=== PATIENT | male | born 1945 | race Caucasian/White ===

== ENCOUNTER 2020-04-30 07:53 | Day surgery (SDC) | payer MEDICARE, OTHER, SELFPAY ==
[2020-04-09 08:41] VITALS: BMI 32.1
[2020-04-30] VITALS (7 sets, daily range): BP systolic 113–155; BP diastolic 51–90; PULSE 83–93; RESP 16–87; TEMP 36–36.4; O2SAT 95–98; BMI 32.7
[2020-04-30] MEDS: Lactated Ringers 1,000 ML 100 ML IV (08:38)
--- NOTE | 2020-04-30 08:45 | PCM.HP.BLA ---
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 Is patient in pain?: No Allergies aspirin Allergy (Unknown, Verified 04/09/20 08:42) Unknown Medications atorvastatin 80 mg tablet 80 mg PO QHS tab 04/09/20 [History Confirmed 04/09/20] cholecalciferol (vitamin D3) 50 mcg (2,000 unit) capsule 50 mcg PO DAILY 04/09/20 [History Confirmed 04/09/20] glipizide 5 mg tablet 5 mg PO DAILY 04/09/20 [History Confirmed 04/09/20] insulin detemir U-100 100 unit/mL (3 mL) subcutaneous pen 30 unit SC QHS ml 04/09/20 [History Confirmed 04/09/20] levothyroxine 25 mcg capsule 25 mcg PO DAILY 04/09/20 [History] metformin 1,000 mg tablet 1,000 mg PO BID 04/09/20 [History Confirmed 04/09/20] psyllium husk 0.4 gram capsule 0.4 g PO DAILY 04/09/20 [History Confirmed 04/09/20] PFSH Medical History Hemorrhoids (Acute) Acid reflux (Acute) Coughing (Acute) Arthritis (Acute) Rash (Acute) Diabetes (Acute) Surgical History Hx of repair of right rotator cuff (Acute) Hx of repair of left rotator cuff (Acute) Hx of cholecystectomy (Acute) Hx of appendectomy (Acute) Hx of tonsillectomy (Acute) Family History Mother Arthritis Heart disease Hypertension CVA (cerebral vascular accident) Thyroid disorder Seizures Asthma Father Diabetes Heart disease Hypertension CVA (cerebral vascular accident) High cholesterol Sister Diabetes Social History (Updated 04/09/20 @ 09:[address] Nicholas Redman MD) Smoking Status: Never smoker second hand exposure: No alcohol intake: never substance use type: does not use caffeine: Yes what type of physical activity do you participate in: none frequency: does not exercise seatbelt use: always HPI HPI HPI: EARL CONN, is a 74 M who presents to the office today for surgical consultation regarding a colonoscopy. The patient has never had a previous colonoscopy. He is referred by Dr. Blair Traore from the [facility] to proceed with a screening colonoscopy. The patient notes that I assisted him in approximately 1998 with a cholecystectomy. He states that at that time his gallbladder was so severe and secondary to his body habitus that we had to convert from a laparoscopic to an open procedure. He has done well since that time. He also claims that prior to that he had had a exploratory operation for bowel obstruction done elsewhere. He states that he had adhesions related to his appendix causing an internal hernia. He has had some intermittent problems with bowel obstruction since that time but mostly related to if he eats raw vegetables. He states that over the recent period of time he has become much more sedentary. He used to enjoy walking but he does not do that anymore. He denies chest pain or shortness of breath. He is a diabetic requiring insulin. He claims that he is not always diligent with his dietary intake. He denies bright red blood per rectum or melena. He denies abdominal pain. He denies any history of DVT HPI HPI HPI: EARL CONN is a 74 M who presents to the office today for ROS General General: No weight change, appetite, fatigue, colon cancer, breast cancer or weakness HEENT HEENT: No difficulty swallowing, eye injury, eye surgery, swollen glands or hoarseness Endo Endocrine: Yes diabetes mellitus; no thyroid disease, thyroid cancer, Hair loss, heat intolerance or cold intolerance Skin Skin: Yes rash; no changing moles Musc Musculoskeletal: Yes arthritis; no back problems, rheumatoid arthritis, gout or joint pain Cardio Cardiovascular: No murmur, pacemaker, heart disease, atrial fibrillation, high blood pressure, heart attack, heart stent, palpitations, shortness of breat with exertion or chest pain Psych Psychiatric: No depression, anxiety or hearing voices Resp Respiratory: No shortness of breath, No sleep apnea, Yes cough, No COPD, No asthma, No emphysema, No wheezing Gastro Gastrointestinal: No abdominal pain, No nausea or vomiting, No diarrhea, No constipation, No blood in stool, Yes acid reflux, Yes hemorrhoids, No ulcers, No gallbladder problem, No black,tarry stools Neuro Neurologic: No weakness Exam Const General: cooperative Nutritional Appearance: obese Orientation: alert, awake [facility] Head: normal to inspection Chest Chest palpation & inspection: normal inspection of the chest Resp Effort & Inspection: normal respiratory effort Auscultation: clear to auscultation bilaterally Cardio Rate: regular rate Heart Sounds: no murmurs GI Palpation: soft Auscultation: normal bowel sounds Other: Well-healed oblique right subcostal incision. Well-healed long midline incision extending from above the umbilicus to the pubis Musc Cervical Spine: normal cervical lordosis Neuro Cognition: normal cognition Extrem General: no calf tenderness Psych Affect: normal affect Assessment & Plan Problems 1. Screening for malignant neoplasm of intestine Z12.10 Plan I recommended the patient a screening colonoscopy with possible biopsy or polypectomy as indicated. He is already been provided bowel prep instructions from the [facility] with instructions to use movie prep. The patient has had an opportunity to ask and have questions answered. He is diabetic. We will provide monitored anesthesia care. We will schedule and proceed at his discretion. Copy: Dr. Blair Redman M.D., F.A.C.S. Coding Level of Care Code 66205 Diagnoses Screening for malignant neoplasm of intestine Z12.10 I have re-examined the patient. There are no clinical changes since date of exam.
--- NOTE | 2020-04-30 09:00 | COLBX_PTH ---
PATIENT: EARL CONN LOC: [facility] U#:[id number] AGE/SX: 74/M ROOM: RE04/30/[address]: Dr. Nicholas Redman MD : 1945 BED: DIS: 04/30/2020 SPEC #: [id number] RECD: 04/30/20 11:40 STATUS: SILVERIO SHANA #: [id number] MALENA: 04/30/20 09:[address]: Nicholas Redman DEPT: SURGICAL PATHOLOGY RECD BY: Poppy Villarreal ENTERED: 04/30/20 12:32 SP TYPE: COLON BX OTHR DR: [facility] Tissues: A - Ascending colon B - Transverse colon C - Transverse colon D - Transverse colon E - SPLENIC FLEXURE F - SPLENIC FLEXURE G - Descending colon H - Rectum, NOS I - Rectum, NOS Procedures: Surgery Specimen Level IV HEADER OPERATION: Colonoscopy (MAC) PRE-OP DIAGNOSIS: Screening TISSUE SUBMITTED: A - Mid ascending colon polyp snare, B - Proximal transverse colon polyp biopsy, C - Proximal transverse colon polyp snare, D - Mid transverse colon polyp biopsy, E - Splenic flexure polyp biopsy, F - Splenic flexure polyp snare, G - Descending colon polyp snare, H - Rectal polyp snare, I??Rectal polyp biopsy MICROSCOPIC DIAGNOSIS A. Mid ascending colon polyp, biopsy: Tubular adenoma. Fragments of fecal material. B. Proximal transverse colon polyp, biopsy: A fragment of colonic mucosa, no pathologic diagnosis. C. Proximal transverse colon polyp, biopsy: Fragments of tubular adenoma. Fragments of fecal material. D. Mid transverse colon polyp, biopsy: Fragments of tubular adenoma. E. Splenic flexure polyp, biopsy: Hyperplastic polyp. F. Splenic flexure polyp, biopsy: Fragments of fecal material. See comment. G. Descending colon polyp, biopsy: Tubular adenoma. H. Rectal polyp, biopsy: Hyperplastic polyp. Fragments of fecal material. I. Rectal polyp, biopsy: Hyperplastic polyp. SJ:christen 05/03/20 COMMENT F. Colonic mucosal tissue is not identified in the submitted specimen. MICROSCOPIC DESCRIPTION Slides are reviewed. GROSS DESCRIPTION A - Received in fixative is one container labeled with the patient's name and designated mid ascending colon polyp. The specimen consists of multiple irregular fragments of light gómez soft tissue mixed with fecal material that in aggregate measure 2 x 2 x 0.1 cm. The specimen predominantly consists of fecal material. The specimen is totally submitted in one cassette. B - Received in fixative is one container labeled with the patient's name and designated proximal transverse colon polyp. The specimen consists of one irregular fragment of light gómez soft tissue that measures 0.4 x 0.2 x 0.1 cm. The specimen is totally submitted in one cassette. C - Received in fixative is one container labeled with the patient's name and designated proximal transverse colon polyp snare. The specimen consists of multiple irregular fragments of gómez soft tissue mixed with fecal material that in aggregate measure 3 x 1.5 x 0.2 cm. The specimen predominantly consists of fecal material. The specimen is totally submitted in one cassette. D - Received in fixative is one container labeled with the patient's name and designated mid transverse polyp. The specimen consists of two irregular fragments of light gómez soft tissue that in aggregate measure 0.6 x 0.3 x 0.1 cm. The specimen is totally submitted in one cassette. E - Received in fixative is one container labeled with the patient's name and designated splenic flexure polyp. The specimen consists of one irregular fragment of light gómez soft tissue that measures 0.3 x 0.3 x 0.1 cm. The specimen is totally submitted in one cassette. F - Received in fixative is one container labeled with the patient's name and designated splenic flexure polyp. The specimen consists of multiple irregular fragments of gómez soft tissue mixed with fecal material that in aggregate measure 3 x 1.5 x 0.2 cm. The specimen predominantly consists of fecal material. The specimen is totally submitted in one cassette. G - Received in fixative is one container labeled with the patient's name and designated descending colon polyp. The specimen consists of a piece of gómez-pink polyp measuring 0.6 x 0.5 x 0.3 cm. Also present in the container are multiple fragments of gómez soft tissue mixed with fecal material measuring in aggregate 2.5 x 0.5 x 0.1 cm. The specimen is totally submitted in one cassette. H - Received in fixative is one container labeled with the patient's name and designated rectal polyp snare. The specimen consists of multiple irregular fragments of gómez soft tissue mixed with fecal material that in aggregate measure 2.5 x 1 x 0.2 cm. The specimen predominantly consists of fecal material. The entire specimen is submitted in one cassette. I - Received in fixative is one container labeled with the patient's name and designated rectal polyp biopsy. The specimen consists of two irregular fragments of light gómez soft tissue that in aggregate measure 0.5 x 0.3 x 0.1 cm. The specimen is totally submitted in one cassette. / SJ:christen 04/30/20 TC:1 CPT: 60499 x9
--- NOTE | 2020-04-30 10:03 | OP.COLON_ITS ---
Patient Name: Dayton Woody Procedure Date: 04/30/2020 9:21 AM Date of : 1945 Age: 74 Procedure: Colonoscopy Indications: Screening for colorectal malignant neoplasm Providers: Nicholas Redman MD Referring MD: Nicholas Redman MD Medicines: See the Anesthesia note for documentation of the administered medications Patient Profile: Last Colonoscopy: none. The patient's first colonoscopy is today. Complications: No immediate complications. Procedure: Pre-Anesthesia Assessment: - Prior to the procedure, a History and Physical was performed, and patient medications and allergies were reviewed. The patient's tolerance of previous anesthesia was also reviewed. The risks and benefits of the procedure and the sedation options and risks were discussed with the patient. All questions were answered, and informed consent was obtained. Prior Anticoagulants: The patient has taken no previous anticoagulant or antiplatelet agents. ASA Grade Assessment: III - A patient with severe systemic disease. After reviewing the risks and benefits, the patient was deemed in satisfactory condition to undergo the procedure. After I obtained informed consent, the scope was passed under direct vision. Throughout the procedure, the patient's blood pressure, pulse, and oxygen saturations were monitored continuously. The colonoscope was introduced through the anus and advanced to the cecum, identified by appendiceal orifice and ileocecal valve. The colonoscopy was performed with moderate difficulty due to poor endoscopic visualization. The patient tolerated the procedure well. The quality of the bowel preparation was fair. The ileocecal valve and the appendiceal orifice were photographed. Scope In: 9:26:42 AM Scope Withdrawal Time 0 hours 17 minutes 59 seconds Scope Out: 9:51:42 AM Total Procedure Duration Time 0 hours 25 minutes 0 seconds Findings: The digital rectal exam findings include non-thrombosed external hemorrhoids, non-thrombosed internal hemorrhoids, internal hemorrhoids that prolapse with straining, but spontaneously regress to the resting position (Grade II) and enlarged prostate. A 7 mm polyp was found in the mid ascending colon. The polyp was sessile. The polyp was removed with a cold snare. Resection and retrieval were complete. A 6 mm polyp was found in the proximal transverse colon. The polyp was sessile. The polyp was removed with a cold snare. Resection and retrieval were complete. A 4 mm polyp was found in the proximal transverse colon. The polyp was sessile. The polyp was removed with a cold biopsy forceps. Resection and retrieval were complete. A 6 mm polyp was found in the mid transverse colon. The polyp was sessile. The polyp was removed with a cold snare. Resection and retrieval were complete. A 8 mm polyp was found in the splenic flexure. The polyp was sessile. The polyp was removed with a cold snare. Resection and retrieval were complete. A 5 mm polyp was found in the splenic flexure. The polyp was sessile. The polyp was removed with a cold biopsy forceps. Resection and retrieval were complete. A 9 mm polyp was found in the mid descending colon. The polyp was sessile. The polyp was removed with a cold snare. Resection and retrieval were complete. A 7 mm polyp was found in the rectum. The polyp was sessile. The polyp was removed with a cold snare. Resection and retrieval were complete. A 4 mm polyp was found in the rectum. The polyp was sessile. The polyp was removed with a cold biopsy forceps. Resection and retrieval were complete. Scattered diverticula were found in the sigmoid colon. Impression: - Preparation of the colon was fair. - Non-thrombosed external hemorrhoids, non-thrombosed internal hemorrhoids, internal hemorrhoids that prolapse with straining, but spontaneously regress to the resting position (Grade II) and enlarged prostate found on digital rectal exam. - One 7 mm polyp in the mid ascending colon, removed with a cold snare. Resected and retrieved. - One 6 mm polyp in the proximal transverse colon, removed with a cold snare. Resected and retrieved. - One 4 mm polyp in the proximal transverse colon, removed with a cold biopsy forceps. Resected and retrieved. - One 6 mm polyp in the mid transverse colon, removed with a cold snare. Resected and retrieved. - One 8 mm polyp at the splenic flexure, removed with a cold snare. Resected and retrieved. - One 5 mm polyp at the splenic flexure, removed with a cold biopsy forceps. Resected and retrieved. - One 9 mm polyp in the mid descending colon, removed with a cold snare. Resected and retrieved. - One 7 mm polyp in the rectum, removed with a cold snare. Resected and retrieved. - One 4 mm polyp in the rectum, removed with a cold biopsy forceps. Resected and retrieved. - Diverticulosis in the sigmoid colon. Recommendation: - Discharge patient to home. - Resume previous diet. - Continue present medications. - Telephone my office for pathology results in 1 week. - Repeat colonoscopy in 1 year for surveillance. Procedure Code(s): --- Professional --- 47069, Colonoscopy, flexible; with removal of tumor(s), polyp(s), or other lesion(s) by snare technique 45897, 59, Colonoscopy, flexible; with biopsy, single or multiple Diagnosis Code(s): --- Professional --- Z12.11, Encounter for screening for malignant neoplasm of colon K64.1, Second degree hemorrhoids K64.4, Residual hemorrhoidal skin tags D12.2, Benign neoplasm of ascending colon D12.3, Benign neoplasm of transverse colon (hepatic flexure or splenic flexure) D12.4, Benign neoplasm of descending colon K62.1, Rectal polyp K57.30, Diverticulosis of large intestine without perforation or abscess without bleeding N40.0, Benign prostatic hyperplasia without lower urinary tract symptoms CPT copyright 2017 [employer]. All rights reserved. The codes documented in this report are preliminary and upon blender conveyor operator review may be revised to meet current compliance requirements. Nicholas Redman MD 04/30/2020 10:02:55 AM This report has been signed electronically. Number of Addenda: 0 Note Initiated On: 04/30/2020 9:21 AM
--- NOTE | 2020-04-30 10:03 | OP.CCLET_ITS ---
04/30/2020 [facility] Re : Colonoscopy procedure for [facility] This procedure was performed on Thursday, April 30, 2020. My impressions and recommendations are as follows: Impressions : - Preparation of the colon was fair. - Non-thrombosed external hemorrhoids, non-thrombosed internal hemorrhoids, internal hemorrhoids that prolapse with straining, but spontaneously regress to the resting position (Grade II) and enlarged prostate found on digital rectal exam. - One 7 mm polyp in the mid ascending colon, removed with a cold snare. Resected and retrieved. - One 6 mm polyp in the proximal transverse colon, removed with a cold snare. Resected and retrieved. - One 4 mm polyp in the proximal transverse colon, removed with a cold biopsy forceps. Resected and retrieved. - One 6 mm polyp in the mid transverse colon, removed with a cold snare. Resected and retrieved. - One 8 mm polyp at the splenic flexure, removed with a cold snare. Resected and retrieved. - One 5 mm polyp at the splenic flexure, removed with a cold biopsy forceps. Resected and retrieved. - One 9 mm polyp in the mid descending colon, removed with a cold snare. Resected and retrieved. - One 7 mm polyp in the rectum, removed with a cold snare. Resected and retrieved. - One 4 mm polyp in the rectum, removed with a cold biopsy forceps. Resected and retrieved. - Diverticulosis in the sigmoid colon. Recommendations : - Discharge patient to home. - Resume previous diet. - Continue present medications. - Telephone my office for pathology results in 1 week. - Repeat colonoscopy in 1 year for surveillance. My findings are described in the full procedure note, which is enclosed. If I can be of further assistance, please feel free to contact me at Doctor phone number(s): Work: . Sincerely, Nicholas Redman MD 04/30/2020 10:02:55 AM This report has been signed electronically.
[2020-04-30 10:36] LABS: Bedside Glucose 140 mg/dL (70-110)
== END 2020-04-30 10:55 | disposition home or self-care (01) ==
LOC: EN 07:54 → AC 07:55
PROVIDERS: Anesthesiology; Referring Provider Surgery; Visit Provider Surgery
PROC: 0DJD8ZZ Inspection of Lower Intestinal Tract, Via Natural or Artificial Opening Endoscopic (ICD-10-PCS; CPT 45378; principal; 2020-04-30 08:55)
DX: Z12.11 Encounter for screening for malignant neoplasm of colon (principal); D12.4 Benign neoplasm of descending colon; D12.3 Benign neoplasm of transverse colon; D12.2 Benign neoplasm of ascending colon; N40.0 Benign prostatic hyperplasia without lower urinary tract symptoms; K63.5 Polyp of colon; K62.1 Rectal polyp; K64.1 Second degree hemorrhoids; K64.4 Residual hemorrhoidal skin tags; K57.30 Diverticulosis of large intestine without perforation or abscess without bleeding; Z11.59 Encounter for screening for other viral diseases; M19.90 Unspecified osteoarthritis, unspecified site; K21.9 Gastro-esophageal reflux disease without esophagitis; E11.9 Type 2 diabetes mellitus without complications; Z90.49 Acquired absence of other specified parts of digestive tract; Z79.4 Long term (current) use of insulin; Z79.899 Other long term (current) drug therapy
CPT/HCPCS: 45380; 45385; 82962; 87635; 88305; C9803; J7120; J2405; U0003

== ENCOUNTER 2021-05-06 08:50 | Day surgery (SDC) | payer OTHER, SELFPAY ==
--- NOTE | 2021-05-06 | COLBX_PTH ---
PATIENT: EARL CONN LOC: EN U#:[id number] AGE/SX: 75/M ROOM: RE05/06/[address]: Dr. Nicholas Redman MD : 1945 BED: DIS: 05/06/2021 SPEC #: [id number] RECD: 05/06/21 13:36 STATUS: SILVERIO SHANA #: [id number] MALENA: 05/06/21 00:[address]: Nicholas Redman DEPT: SURGICAL PATHOLOGY RECD BY: Nathaniel Barakat ENTERED: 05/06/21 13:37 SP TYPE: COLON BX OT DR: [facility] Tissues: A - Transverse colon B - Descending colon C - Sigmoid colon biopsy Procedures: Surgery Specimen Level IV HEADER OPERATION: Colonoscopy (MAC) PRE-OP DIAGNOSIS: History colonic polyps TISSUE SUBMITTED: A ? Proximal transverse colon biopsy, B ? Descending colon biopsy, C ? Proximal sigmoid colon biopsy MICROSCOPIC DIAGNOSIS A. Proximal transverse colon, biopsy: Fragments of tubulovillous adenoma. B. Descending colon, biopsy: Fragments of tubular adenoma. C. Proximal sigmoid colon, biopsy: Tubular adenoma. FARSHAD:christen 05/09/2021 MICROSCOPIC DESCRIPTION Slides are reviewed. GROSS DESCRIPTION A - Received in fixative is one container labeled with the patient's name and designated proximal transverse colon biopsy. The specimen consists of multiple irregular fragments of light gómez soft tissue that in aggregate measure 1 x 0.4 x 0.1 cm. The specimen is totally submitted in one cassette. B - Received in fixative is one container labeled with the patient's name and designated descending colon biopsy. The specimen consists of multiple irregular fragments of light gómez soft tissue that in aggregate measure 0.3 x 0.3 x 0.1 cm. The specimen is totally submitted in one cassette. C - Received in fixative is one container labeled with the patient's name and designated proximal sigmoid colon biopsy. The specimen consists of two irregular fragments of light gómez soft tissue that in aggregate measure 0.3 x 0.3 x 0.1 cm. The specimen is totally submitted in one cassette. / FARSHAD:christen 05/06/21 TC:1 CPT: 82484 x3
[2021-05-06] MEDS: Lactated Ringers 1,000 ML 15 ML IV (09:00)
[2021-05-06 09:16] VITALS: BP 151/76; PULSE 84; RESP 16; TEMP 36.4; O2SAT 94; BMI 31.5
[2021-05-06 09:26] LABS: Bedside Glucose 106 mg/dL (70-110)
--- NOTE | 2021-05-06 09:26 | PCM.HP.BLA ---
History and Physical Date of Admission: 05/06/21 Intake Visit Reasons: C-Scope Chief Complaint: C-Scope Coremaker Machine Required: No Is patient in pain?: No Allergies aspirin Allergy (Unknown, Verified 04/11/21 13:09) Unknown Medications atorvastatin 80 mg tablet 80 mg PO QHS tab 04/09/20 [History Confirmed 04/11/21] cholecalciferol (vitamin D3) 50 mcg (2,000 unit) capsule 50 mcg PO DAILY 04/09/20 [History Confirmed 04/11/21] glipizide 5 mg tablet 5 mg PO DAILY 04/09/20 [History Confirmed 04/11/21] insulin detemir U-100 100 unit/mL (3 mL) subcutaneous pen 30 unit SC QHS ml 04/09/20 [History Confirmed 04/11/21] levothyroxine 25 mcg capsule 25 mcg PO DAILY 04/09/20 [History Confirmed 04/11/21] metformin 1,000 mg tablet 1,000 mg PO BID 04/09/20 [History Confirmed 04/11/21] psyllium husk 0.4 gram capsule 0.4 g PO DAILY 04/09/20 [History Confirmed 04/11/21] PFSH Medical History (Updated 04/11/21 @ 13:[address] Nicholas Redman MD) Acid reflux Arthritis Coughing Diabetes Hemorrhoids Multiple polyps of sigmoid colon Rash Screening for malignant neoplasm of intestine Surgical History (Updated 04/11/21 @ 13:08 by Oksana Ignacio) History of colonoscopy Hx of appendectomy Hx of cholecystectomy Hx of repair of left rotator cuff Hx of repair of right rotator cuff Hx of tonsillectomy Family History Mother Arthritis Heart disease Hypertension CVA (cerebral vascular accident) Thyroid disorder Seizures Asthma Father Diabetes Heart disease Hypertension CVA (cerebral vascular accident) High cholesterol Sister Diabetes Social History Smoking Status: Never smoker second hand exposure: No alcohol intake: never substance use type: does not use caffeine: Yes what type of physical activity do you participate in: none frequency: does not exercise seatbelt use: always HPI HPI HPI: EARL CONN, is a 75 M who presents to the office today for ongoing surgical consultation regarding a history of multiple colonic polyps. The patient is referred by the [facility] and a written copy of my surgical consult recommendations will return to them. I assisted him on April 30, 2020 with a colonoscopy. Bowel prep was noted to be fair. He had nine polyps removed at that time. Most were tubular adenoma. He did have some hyperplastic polyps as well. He returns now at my request for a follow-up colonoscopy secondary to the fair bowel prep and the history of multiple polyps He has not had any acute illnesses over the past year. He is a diabetic and sometimes does not abide by diabetic diet. He has chronic bilateral lower extremity swelling. 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 Blood per rectum or melena. No abdominal pain. ROS General General: No weight change, appetite, fatigue, colon cancer, breast cancer or weakness HEENT HEENT: No difficulty swallowing, eye injury, eye surgery, swollen glands or hoarseness Endo Endocrine: Yes diabetes mellitus; No thyroid disease, thyroid cancer, Hair loss, heat intolerance or cold intolerance Skin Skin: No rash or changing moles Breast Breast: No left breast lump, right breast lump, nipple discharge, breast pain, abnormal mammogram, abnormal US or breast enlargement Musc Musculoskeletal: Yes arthritis; No back problems, rheumatoid arthritis, gout or joint pain Cardio Cardiovascular: No murmur, pacemaker, heart disease, atrial fibrillation, high blood pressure, heart attack, heart stent, palpitations, shortness of breat with exertion or chest pain Psych Psychiatric: No depression, anxiety or hearing voices Resp Respiratory: No shortness of breath, No sleep apnea, No cough, No COPD, No asthma, No emphysema and No wheezing Gastro Gastrointestinal: No abdominal pain, No nausea or vomiting, No diarrhea, No constipation, No blood in stool, Yes acid reflux, Yes hemorrhoids, No ulcers, No gallbladder problem and No black,tarry stools Nikolas Hematologic: No blood thinners, No blood disorders, No bleeding, No anemia and No blood clots Neuro Neurologic: No system reviewed and no additional complaints, except as documented, No as per HPI, No abnormal gait, No abnormal hearing, No abnormal movements, No abnormal speech, No behavioral changes, No burning sensations, No confusion, No convulsions, No disequilibrium, No dizziness, No localized weakness, No frequent falls, No headache(s), No lack of coordination, No loss of vision, No memory loss, Yes numbness, No other visual disturbances, No radicular pain, No restless legs, No sensory deficit, No syncope, Yes tingling, No tremor(s), No weakness and No other Exam Const General: cooperative, comfortable and no acute distress Nutritional Appearance: obese Orientation: alert [facility] Head: normal to inspection Eyes General: appearance normal, both eyes and all related structures Chest Other: Nonproductive cough, increased anterior posterior diameter, Resp Auscultation: clear to auscultation bilaterally Cardio Rate: regular rate Rhythm: regular rhythm GI Other: Soft, overweight, nontender, no hepatosplenomegaly Musc Cervical Spine: normal cervical lordosis Neuro General: patient alert and patient awake Cognition: normal cognition Extrem Other: 2+ bilateral extremity pitting edema Psych Affect: normal affect Assessment and Plan Assessment and Plan (1) Personal history of colonic polyps: Status: Acute Plan - Dr. Nicholas Redman MD: 75-year-old gentleman who is status post a screening colonoscopy April 30, 2020 at which point multiple polyps were detected combination of tubular adenomas and hyperplastic polyps. Unfortunately his bowel prep was still only fair at that time. I propose for him a surveillance colonoscopy. I anticipate 2 days of clear liquids. He will take magnesium citrate on day 1 and the MO provided prep which is movie prep for day 2. He has had an opportunity to ask and have questions answered. We will perform this with monitored anesthesia care. I appreciate the opportunity of continue to assist with the surgical care Copy: [facility] Nicholas Redman M.D., F.A.C.S. I have re-examined the patient. There are no clinical changes since date of exam. Nicholas Redman M.D., F.A.C.S.
[2021-05-06 10:50] VITALS: BP 149/81; BP 151/76; PULSE 77; RESP 16; TEMP 36; O2SAT 97
[2021-05-06 10:55] VITALS: BP 130/76; BP 151/76; PULSE 77; RESP 16; O2SAT 96
--- NOTE | 2021-05-06 10:55 | OP.COLON_ITS ---
Patient Name: Dayton Woody Procedure Date: 05/06/2021 10:11 AM Date of : 1945 Age: 75 Procedure: Colonoscopy Indications: High risk colon cancer surveillance: Personal history of colonic polyps Providers: Nicholas Redman MD Referring MD: Nicholas Redman MD Medicines: See the Anesthesia note for documentation of the administered medications Patient Profile: Last Colonoscopy: 1 year ago. Complications: No immediate complications. Procedure: Pre-Anesthesia Assessment: - Prior to the procedure, a History and Physical was performed, and patient medications and allergies were reviewed. The patient's tolerance of previous anesthesia was also reviewed. The risks and benefits of the procedure and the sedation options and risks were discussed with the patient. All questions were answered, and informed consent was obtained. Prior Anticoagulants: The patient has taken no previous anticoagulant or antiplatelet agents. ASA Grade Assessment: II - A patient with mild systemic disease. After reviewing the risks and benefits, the patient was deemed in satisfactory condition to undergo the procedure. After I obtained informed consent, the scope was passed under direct vision. Throughout the procedure, the patient's blood pressure, pulse, and oxygen saturations were monitored continuously. The adult colonoscope was introduced through the anus and advanced to the cecum, identified by appendiceal orifice and ileocecal valve. The colonoscopy was performed without difficulty. The patient tolerated the procedure well. The quality of the bowel preparation was good. The ileocecal valve and the appendiceal orifice were photographed. Scope In: 10:17:22 AM Scope Withdrawal Time 0 hours 20 minutes 3 seconds Scope Out: 10:45:40 AM Total Procedure Duration Time 0 hours 28 minutes 18 seconds Findings: The digital rectal exam findings include non-thrombosed external hemorrhoids, non-thrombosed internal hemorrhoids, internal hemorrhoids that prolapse with straining, but spontaneously regress to the resting position (Grade II) and enlarged prostate. A 11 mm polyp was found in the proximal transverse colon. The polyp was sessile. The polyp was removed with a cold biopsy forceps. Resection and retrieval were complete. A 5 mm polyp was found in the proximal descending colon. The polyp was sessile. The polyp was removed with a cold biopsy forceps. Resection and retrieval were complete. A 4 mm polyp was found in the proximal sigmoid colon. The polyp was sessile. The polyp was removed with a cold biopsy forceps. Resection and retrieval were complete. Scattered diverticula were found in the sigmoid colon. Impression: - Non-thrombosed external hemorrhoids, non-thrombosed internal hemorrhoids, internal hemorrhoids that prolapse with straining, but spontaneously regress to the resting position (Grade II) and enlarged prostate found on digital rectal exam. - One 11 mm polyp in the proximal transverse colon, removed with a cold biopsy forceps. Resected and retrieved. - One 5 mm polyp in the proximal descending colon, removed with a cold biopsy forceps. Resected and retrieved. - One 4 mm polyp in the proximal sigmoid colon, removed with a cold biopsy forceps. Resected and retrieved. - Diverticulosis in the sigmoid colon. Recommendation: - Discharge patient to home. - Resume previous diet. - Continue present medications. - Repeat colonoscopy in 3 years for surveillance. Based upon history of 10 polyps one year ago and several sessile polyps today - Telephone my office for pathology results in 1 week. Procedure Code(s): --- Professional --- 46626, Colonoscopy, flexible; with biopsy, single or multiple Diagnosis Code(s): --- Professional --- Z86.010, Personal history of colonic polyps D12.3, Benign neoplasm of transverse colon (hepatic flexure or splenic flexure) D12.4, Benign neoplasm of descending colon D12.5, Benign neoplasm of sigmoid colon K64.1, Second degree hemorrhoids K64.4, Residual hemorrhoidal skin tags N40.0, Benign prostatic hyperplasia without lower urinary tract symptoms K57.30, Diverticulosis of large intestine without perforation or abscess without bleeding CPT copyright 2017 [employer] [place] [employer]. All rights reserved. The codes documented in this report are preliminary and upon zoology technical officer review may be revised to meet current compliance requirements. Nicholas Redman MD 05/06/2021 10:55:02 AM This report has been signed electronically. Number of Addenda: 2 Note Initiated On: 05/06/2021 10:11 AM Addendum Number: 1 Addendum Date: 05/09/2021 5:44:23 AM After further reviewing the patient's presentation and history I suspect that at least a degree of his anemia secondary to hemorrhoidal bleeding. Pending the results of his lower extremity evaluation and limb salvage will then consider whether surgical resection of his internal hemorrhoids would be indicated. Nicholas Redman M.D., F.A.C.S. Nicholas Redman MD 05/09/2021 5:45:21 AM This report has been signed electronically. Addendum Number: 2 Addendum Date: 05/09/2021 5:45:53 AM The addendum regarding hemorrhoids became tagged to the wrong chart. Please ignore the addendum just added to this chart. He will not required hemorrhoidectomy. Nicholas Redman M.D., Donny.Rohith.C.S. Nicholas Redman MD 05/09/2021 5:46:31 AM This report has been signed electronically.
--- NOTE | 2021-05-06 10:55 | OP.CCLET_ITS ---
05/09/2021 [facility] Re : Colonoscopy procedure for [facility] This procedure was performed on Thursday, May 06, 2021. My impressions and recommendations are as follows: Impressions : - Non-thrombosed external hemorrhoids, non-thrombosed internal hemorrhoids, internal hemorrhoids that prolapse with straining, but spontaneously regress to the resting position (Grade II) and enlarged prostate found on digital rectal exam. - One 11 mm polyp in the proximal transverse colon, removed with a cold biopsy forceps. Resected and retrieved. - One 5 mm polyp in the proximal descending colon, removed with a cold biopsy forceps. Resected and retrieved. - One 4 mm polyp in the proximal sigmoid colon, removed with a cold biopsy forceps. Resected and retrieved. - Diverticulosis in the sigmoid colon. Recommendations : - Discharge patient to home. - Resume previous diet. - Continue present medications. - Repeat colonoscopy in 3 years for surveillance. Based upon history of 10 polyps one year ago and several sessile polyps today - Telephone my office for pathology results in 1 week. My findings are described in the full procedure note, which is enclosed. If I can be of further assistance, please feel free to contact me at Doctor phone number(s): Work: . Sincerely, Nicholas Redman MD 05/06/2021 10:55:02 AM This report has been signed electronically.
[2021-05-06 11:00] VITALS: BP 126/75; BP 151/76; PULSE 76; RESP 16; O2SAT 97
[2021-05-06 11:05] VITALS: BP 126/86; BP 151/76; PULSE 71; RESP 16; TEMP 36.2; O2SAT 97
[2021-05-06 11:21] VITALS: BP 151/76
--- NOTE | 2021-05-06 11:25 | SUR.PHASEII ---
RN CALLED PT'S . SHE IS ON HER WAY TO [facility] TO GET PT. SHE PREFERS TO MEET AT THE DOOR.
== END 2021-05-06 11:30 | disposition home or self-care (01) ==
LOC: EN 08:50 → AC 08:51
PROVIDERS: Referring Provider Surgery; Visit Provider Surgery
PROC: 0DJD8ZZ Inspection of Lower Intestinal Tract, Via Natural or Artificial Opening Endoscopic (ICD-10-PCS; CPT 45378; principal; 2021-05-06 09:55)
DX: D12.3 Benign neoplasm of transverse colon (principal); D12.4 Benign neoplasm of descending colon; D12.5 Benign neoplasm of sigmoid colon; K57.30 Diverticulosis of large intestine without perforation or abscess without bleeding; K64.1 Second degree hemorrhoids; K64.4 Residual hemorrhoidal skin tags; D50.0 Iron deficiency anemia secondary to blood loss (chronic); E11.9 Type 2 diabetes mellitus without complications; N40.0 Benign prostatic hyperplasia without lower urinary tract symptoms; M19.90 Unspecified osteoarthritis, unspecified site; E78.00 Pure hypercholesterolemia, unspecified; K21.9 Gastro-esophageal reflux disease without esophagitis; Z86.010 Personal history of colon polyps; Z79.4 Long term (current) use of insulin; Z79.899 Other long term (current) drug therapy
CPT/HCPCS: 45380; 82962; 87426; 88305; C9803; J7120; J2405

== ENCOUNTER 2023-01-30 06:43 | Day surgery (SDC) | payer OTHER, SELFPAY ==
[2023-01-30] VITALS (7 sets, daily range): BP systolic 129–149; BP diastolic 78–122; PULSE 78–96; RESP 17–18; TEMP 36.1–36.8; O2SAT 94–96; BMI 31.8
--- NOTE | 2023-01-30 06:55 | PCM.HP.BLA ---
History and Physical Date of Admission: 01/30/23 Visit Reasons: Colonoscopy Chief Complaint: C-Scope Allergies aspirin Allergy (Unknown, Verified 01/09/23 14:13) Unknown Medications atorvastatin 80 mg tablet 80 mg PO QHS 04/09/20 [History Confirmed 01/09/23] cholecalciferol (vitamin D3) 50 mcg (2,000 unit) capsule 50 mcg PO DAILY 04/09/20 [History Confirmed 01/09/23] glipizide 5 mg tablet 5 mg PO DAILY 04/09/20 [History Confirmed 01/09/23] insulin detemir U-100 100 unit/mL (3 mL) subcutaneous pen 35 unit subcut QHS 04/09/20 [History Confirmed 01/09/23] levothyroxine 25 mcg capsule 25 mcg PO DAILY 04/09/20 [History Confirmed 01/09/23] metformin 1,000 mg tablet 1,000 mg PO BID 04/09/20 [History Confirmed 01/09/23] psyllium husk 0.4 gram capsule (Fiber (psyllium husk)) 0.4 g PO BID 04/09/20 [History Confirmed 01/09/23] [facility] Medical History (Updated 05/03/21 @ 14:00 by Marcella Garay) Acid reflux Arthritis Arthritis Coughing Diabetes Dietary restriction Easy bruising Gait instability Heartburn Hemorrhoids Hepatitis High cholesterol History of edema History of pain when walking History of stress test Injury of head and neck Insulin dependent diabetes mellitus Leg cramps Multiple polyps of sigmoid colon Non-smoker Prostate disease Rash Screening for malignant neoplasm of intestine Shortness of breath on exertion Thyroid disease Tinnitus Wears glasses Surgical History (Updated 04/11/21 @ 13:08 by Oksana Ignacio) History of colonoscopy Hx of appendectomy Hx of cholecystectomy Hx of repair of left rotator cuff Hx of repair of right rotator cuff Hx of tonsillectomy Family History Mother Arthritis Heart disease Hypertension CVA (cerebral vascular accident) Thyroid disorder Seizures AsthmaFather Diabetes Heart disease Hypertension CVA (cerebral vascular accident) High cholesterolSister Diabetes Social History Smoking Status: Never smoker second hand exposure: No alcohol intake: never substance use type: does not use caffeine: Yes what type of physical activity do you participate in: none frequency: does not exercise seatbelt use: always HPI HPI HPI: 77-year-old gentleman is referred by the [facility] for surgical consultation regarding a surveillance colonoscopy and a written compromise surgical consult recommendations will return to them. It is of note that the patient's most recent colonoscopy was May 2021 with tubular adenoma and tubulovillous adenomas identified with 1 year follow-up recommended. it is of note that my notes reflect that May 06, 2021 I assisted the patient with a colonoscopy. A 11 mm polyp was found in the proximal transverse colon and a 5 mm polyp of the proximal descending colon and a 4 mm polyp in the proximal sigmoid colon. It is of note that 1 year prior to that on his colonoscopy 10 polyps were identified. The patient states that he has not had any acute abdominal pain or changes in bowel habits. He does state that November 30, 2022 he developed COVID-19. Claims he was ill for 10 days and then his symptoms of cough and shortness of breath abated. He does currently have a chronic cough but he states that that is been a long-term chronic process. ROS General General: Yes fatigue; No weight change, appetite, colon cancer, breast cancer or weakness HEENT HEENT: No difficulty swallowing, eye injury, eye surgery, swollen glands or hoarseness Endo Endocrine: No thyroid disease, diabetes mellitus, thyroid cancer, Hair loss, heat intolerance or cold intolerance Skin Skin: Yes rash; No changing moles Breast Breast: No left breast lump, right breast lump, nipple discharge, breast pain, abnormal mammogram, abnormal US or breast enlargement Musc Musculoskeletal: Yes arthritis; No back problems, rheumatoid arthritis, gout or joint pain Cardio Cardiovascular: No murmur, pacemaker, heart disease, atrial fibrillation, high blood pressure, heart attack, heart stent, palpitations, shortness of breat with exertion or chest pain Psych Psychiatric: No depression, anxiety or hearing voices Resp Respiratory: Yes shortness of breath, No sleep apnea, Yes cough, No COPD, No asthma, No emphysema and No wheezing Gastro Gastrointestinal: No abdominal pain, No nausea or vomiting, No diarrhea, Yes constipation, No blood in stool, Yes acid reflux, Yes hemorrhoids, No ulcers, No gallbladder problem and No black,tarry stools Nikolas Hematologic: No blood thinners, No blood disorders, No bleeding, No anemia and No blood clots Neuro Neurologic: No system reviewed and no additional complaints, except as documented, No as per HPI, No abnormal gait, No abnormal hearing, No abnormal movements, No abnormal speech, No behavioral changes, No burning sensations, No confusion, No convulsions, No disequilibrium, No dizziness, No localized weakness, No frequent falls, No headache(s), No lack of coordination, No loss of vision, No memory loss, Yes numbness, No other visual disturbances, No radicular pain, No restless legs, No sensory deficit, No syncope, Yes tingling, No tremor(s), No weakness and No other Exam Const General: cooperative, comfortable and no acute distress Other: Chronic nonproductive cough noted throughout his verbal interview HENMT Head: normal to inspection Eyes General: appearance normal, both eyes and all related structures Chest Other: Increased AP diameter. Resp Effort & Inspection: normal respiratory effort Auscultation: clear to auscultation bilaterally Cardio Rate: regular rate Rhythm: regular rhythm GI Other: Abdomen is overweight and bulbous, normal bowel sounds, no hepatosplenomegaly no masses no tenderness Musc Cervical Spine: normal cervical lordosis Skin General: no rashes or lesions noted Neuro General: patient alert, patient awake and patient oriented x3 Extrem General: no calf tenderness Psych Appearance: grossly normal Assessment and Plan Assessment and Plan (1) Personal history of colonic polyps: Status: Acute Plan: I recommended the patient a surveillance colonoscopy with possible biopsy or polypectomy as indicated. He is aware of the technique, benefit, risk, alternatives. We will utilize monitored anesthesia care. The patient's had an opportunity to ask and have questions answered. Based upon his history of multiple colon polyps ongoing surveillance is indicated particularly as previous pathology has demonstrated tubulovillous adenoma. Copy: [facility] Nicholas Redman M.D., F.A.C.S. I have examined the patient and the H&P has been reviewed. There are no clinical changes since date of exam. Nicholas Redman M.D., F.A.C.S.
[2023-01-30] MEDS: Lactated Ringers 1,000 ML 15 ML IV (07:14)
[2023-01-30 07:27] LABS: Bedside Glucose 182 mg/dL (74-106)
--- NOTE | 2023-01-30 07:45 | COLBX_PTH ---
PATIENT: EARL CONN LOC: EN U#:[id number] AGE/SX: 77/M ROOM: RE01/30/[address]: Dr. Nicholas Redman MD : 1945 BED: DIS: 01/30/2023 SPEC #: [id number] RECD: 01/30/23 10:27 STATUS: SILVERIO SHANA #: [id number] MALENA: 01/30/23 07:[address]: Nicholas Redman DEPT: SURGICAL PATHOLOGY RECD BY: Maddy Downey ENTERED: 01/30/23 11:12 SP TYPE: COLON BX OTHR DR: [facility] Tissues: A - COLON BIOPSY B - Transverse colon C - Transverse colon D - Transverse colon E - Transverse colon F - Descending colon Procedures: Surgery Specimen Level IV HEADER OPERATION: Colonoscopy, polypectomy, biopsy, spot marking PRE-OP DIAGNOSIS: History of colonic polyps TISSUE SUBMITTED: A - Hepatic flexure 5 mm polyp biopsy, B - Proximal transverse polyp, hot snare, C - Polyps 8 mm x2 side by side mid transverse, cold snare, D - 4 mm polyp mid transverse, more distal biopsy, E - 1 cm polyp distal transverse, cold snare, F - 2.5 cm sessile polyp, proximal descending, saline lift hot snare, spot marking MICROSCOPIC DIAGNOSIS A. Colonic polyp at hepatic flexure, biopsy: Tubular adenoma. B. Proximal transverse colon polyp, biopsy: Fragments of tubular adenoma. C. Mid transverse colon polyp, biopsy: Fragments of tubular adenoma. D. Distal mid transverse colon polyp, biopsy: Fragment of benign colonic mucosa. See comment. E. Distal transverse colon polyp, biopsy: Fragments of tubular adenoma. F. Proximal descending colon polyp, biopsy: Fragments of tubular adenoma with focal high-grade dysplasia. AM:christen 01/31/2023 COMMENT D. Neither hyperplastic nor adenomatous change is identified. Clinical correlation is suggested. Case has been reviewed in consultation with Dr. Garland who concurs with the above diagnosis. IDC:[email or web address] MICROSCOPIC DESCRIPTION Slides are reviewed. GROSS DESCRIPTION A - Received in fixative is one container labeled with the patient's name and designated 5 mm hepatic flexure polyp biopsy. The specimen consists of two irregular fragments of light gómez soft tissue that in aggregate measure 0.6 x 0.3 x 0.1 cm. The specimen is totally submitted in one cassette. B - Received in fixative is one container labeled with the patient's name and designated proximal transverse polyp. The specimen consists of multiple irregular fragments of light gómez soft tissue that in aggregate measure 1.5 x 0.3 x 0.1 cm. The specimen is totally submitted in one cassette. C - Received in fixative is one container labeled with the patient's name and designated polyps 8 mm x2 side by side mid transverse. The specimen consists of multiple irregular fragments of light gómez soft tissue that in aggregate measure 2.5 x 0.5 x 0.1 cm. The specimen is totally submitted in one cassette. D - Received in fixative is one container labeled with the patient's name and designated 4 mm polyp mid transverse, more distal biopsy. The specimen consists of one irregular fragment of light gómez soft tissue that measures 0.5 x 0.3 x 0.1 cm. The specimen is totally submitted in one cassette. E - Received in fixative is one container labeled with the patient's name and designated 1 cm polyp distal transverse, cold snare. The specimen consists of one gómez-pink polyp measuring 0.5 x 0.5 x 0.2 cm. Also present in the container is a one fragment of gómez soft tissue measuring 0.3 x 0.2 x 0.1 cm. The specimen is totally submitted in one cassette. F - Received in fixative is one container labeled with the patient's name and designated 2.5 cm sessile polyp, proximal descending at 70.0 cm. The specimen consists of multiple irregular fragments of light gómez soft tissue mixed with fecal material that in aggregate measure 2.0 x 1.0 x 0.1 cm. The specimen is totally submitted in one cassette. / SJ:christen 01/30/2023 TC:? CPT: 02991 x6
[2023-01-30] MEDS: 0.9% Saline Lock 10 ML Syringe IV (08:30)
--- NOTE | 2023-01-30 08:59 | OP.CCLET_ITS ---
01/30/2023 [facility] Re : Colonoscopy procedure for [facility] This procedure was performed on Monday, January 30, 2023. My impressions and recommendations are as follows: Impressions : - Preparation of the colon was fair. - Non-thrombosed internal hemorrhoids and internal hemorrhoids that prolapse with straining, but spontaneously regress to the resting position (Grade II) found on digital rectal exam. - One 5 mm polyp at the hepatic flexure, removed with a cold biopsy forceps. Resected and retrieved. - One 7 mm polyp in the proximal transverse colon, removed with a hot snare. Resected and retrieved. - Two 7 to 9 mm polyps in the mid transverse colon, removed with a cold snare. Resected and retrieved. - One 4 mm polyp in the mid transverse colon, removed with a cold biopsy forceps. Resected and retrieved. - One 10 mm polyp in the distal transverse colon, removed with a cold snare. Resected and retrieved. - One 25 mm polyp in the proximal descending colon, removed with a cold snare, removed using injection-lift and a cold snare and removed piecemeal using a cold snare. Polyp resection was incomplete, and the resected tissue was partially retrieved. Tattooed. Recommendations : - Repeat colonoscopy in 1 year for surveillance based on pathology results. - Return to my office in 1 week to discuss the incomplete removal of the proximal descending colon polyp which was tattooed. - Continue present medications. My findings are described in the full procedure note, which is enclosed. If I can be of further assistance, please feel free to contact me at Doctor phone number(s): Work: . Sincerely, Nicholas Redman MD 01/30/2023 8:58:30 AM This report has been signed electronically.
--- NOTE | 2023-01-30 08:59 | OP.COLON_ITS ---
Patient Name: Dayton Woody Procedure Date: 01/30/2023 7:51 AM Date of : 1945 Age: 77 Procedure: Colonoscopy Indications: High risk colon cancer surveillance: Personal history of colonic polyps Providers: Nicholas Redman MD Medicines: See the Anesthesia note for documentation of the administered medications Patient Profile: Last Colonoscopy: within the past 3 years. Complications: No immediate complications. Procedure: Pre-Anesthesia Assessment: - Prior to the procedure, a History and Physical was performed, and patient medications and allergies were reviewed. The patient's tolerance of previous anesthesia was also reviewed. The risks and benefits of the procedure and the sedation options and risks were discussed with the patient. All questions were answered, and informed consent was obtained. Prior Anticoagulants: The patient has taken no previous anticoagulant or antiplatelet agents. ASA Grade Assessment: II - A patient with mild systemic disease. After reviewing the risks and benefits, the patient was deemed in satisfactory condition to undergo the procedure. After I obtained informed consent, the scope was passed under direct vision. Throughout the procedure, the patient's blood pressure, pulse, and oxygen saturations were monitored continuously. The colonoscope was introduced through the anus and advanced to the cecum, identified by appendiceal orifice and ileocecal valve. The colonoscopy was performed with moderate difficulty due to the patient's body habitus. The patient tolerated the procedure well. The quality of the bowel preparation was fair. The ileocecal valve and the appendiceal orifice were photographed. Scope In: 7:58:52 AM Scope Withdrawal Time 0 hours 33 minutes 44 seconds Scope Out: 8:45:56 AM Total Procedure Duration Time 0 hours 47 minutes 4 seconds Findings: The digital rectal exam findings include non-thrombosed internal hemorrhoids and internal hemorrhoids that prolapse with straining, but spontaneously regress to the resting position (Grade II). A 5 mm polyp was found in the hepatic flexure. The polyp was sessile. The polyp was removed with a cold biopsy forceps. Resection and retrieval were complete. A 7 mm polyp was found in the proximal transverse colon. The polyp was sessile. The polyp was removed with a hot snare. Resection and retrieval were complete. Two sessile polyps were found in the mid transverse colon. The polyps were 7 to 9 mm in size. These polyps were removed with a cold snare. Resection and retrieval were complete. A 4 mm polyp was found in the mid transverse colon. The polyp was sessile. The polyp was removed with a cold biopsy forceps. Resection and retrieval were complete. A 10 mm polyp was found in the distal transverse colon. The polyp was sessile. The polyp was removed with a cold snare. Resection and retrieval were complete. A 25 mm polyp was found in the proximal descending colon. The polyp was sessile. The polyp was removed with a cold snare. The polyp was removed with a saline injection-lift technique using a cold snare. The polyp was removed with a piecemeal technique using a cold snare. Polyp resection was incomplete, and the resected tissue was partially retrieved. Area was tattooed with an injection of 2 mL of Y[place]aira ink. Impression: - Preparation of the colon was fair. - Non-thrombosed internal hemorrhoids and internal hemorrhoids that prolapse with straining, but spontaneously regress to the resting position (Grade II) found on digital rectal exam. - One 5 mm polyp at the hepatic flexure, removed with a cold biopsy forceps. Resected and retrieved. - One 7 mm polyp in the proximal transverse colon, removed with a hot snare. Resected and retrieved. - Two 7 to 9 mm polyps in the mid transverse colon, removed with a cold snare. Resected and retrieved. - One 4 mm polyp in the mid transverse colon, removed with a cold biopsy forceps. Resected and retrieved. - One 10 mm polyp in the distal transverse colon, removed with a cold snare. Resected and retrieved. - One 25 mm polyp in the proximal descending colon, removed with a cold snare, removed using injection-lift and a cold snare and removed piecemeal using a cold snare. Polyp resection was incomplete, and the resected tissue was partially retrieved. Tattooed. Recommendation: - Repeat colonoscopy in 1 year for surveillance based on pathology results. - Return to my office in 1 week to discuss the incomplete removal of the proximal descending colon polyp which was tattooed. - Continue present medications. Procedure Code(s): --- Professional --- 88347, Colonoscopy, flexible; with removal of tumor(s), polyp(s), or other lesion(s) by snare technique 90688, 59, Colonoscopy, flexible; with biopsy, single or multiple 27128, Colonoscopy, flexible; with directed submucosal injection(s), any substance Diagnosis Code(s): --- Professional --- Z86.010, Personal history of colonic polyps K64.1, Second degree hemorrhoids D12.3, Benign neoplasm of transverse colon (hepatic flexure or splenic flexure) D12.4, Benign neoplasm of descending colon CPT copyright 2017 [employer]. All rights reserved. The codes documented in this report are preliminary and upon him coder review may be revised to meet current compliance requirements. Nicholas Redman MD 01/30/2023 8:58:30 AM This report has been signed electronically. Number of Addenda: 0 Note Initiated On: 01/30/2023 7:51 AM
== END 2023-01-30 09:37 | disposition home or self-care (01) ==
LOC: EN 06:46 → AC 06:47
PROVIDERS: Visit Provider Surgery
PROC: 0DJD8ZZ Inspection of Lower Intestinal Tract, Via Natural or Artificial Opening Endoscopic (ICD-10-PCS; CPT 45378; principal; 2023-01-30 07:40)
DX: Z12.11 Encounter for screening for malignant neoplasm of colon (principal); E11.9 Type 2 diabetes mellitus without complications; Z79.4 Long term (current) use of insulin; E07.9 Disorder of thyroid, unspecified; E78.00 Pure hypercholesterolemia, unspecified; Z82.49 Family history of ischemic heart disease and other diseases of the circulatory system; Z79.84 Long term (current) use of oral hypoglycemic drugs; Z86.010 Personal history of colon polyps; K64.1 Second degree hemorrhoids; D12.3 Benign neoplasm of transverse colon; D12.4 Benign neoplasm of descending colon; Z86.16 Personal history of COVID-19
CPT/HCPCS: 45385; 45380; 45381; 82962; 88305; J7120; A4216; A4648; J2405

== ENCOUNTER 2024-11-21 13:49 | Emergency (ER) | payer OTHER, SELFPAY ==
[2024-11-21 13:50] VITALS: BP 148/63; PULSE 94; RESP 15; TEMP 36.1; O2SAT 97; BMI 31.7
--- NOTE | 2024-11-21 14:15 | EX.ED.GUMALE ---
HPI History of Present Illness Chief Complaint: Complaint Informant: patient Narrative Narrative: Patient states he was told at the [facility] he has a very large prostate and has been taking tamsulosin for that. For the past 3 to 4 days has been having trouble getting urine out. He states if he pushes really hard given very small amount out, the last time he was able to do that was this morning and since then has not been able to get anything. He feels like he needs to urinate but denies any pain. No back pain. No nausea or vomiting. No fevers or chills. No hematuria. He states for the past week or so he is had some external hemorrhoids and he thinks this started around the time he was using cream on them. [facility] Medical History Restless legs Chronic cough Tinnitus Wears glasses Thyroid disease Insulin dependent diabetes mellitus Arthritis Prostate disease Hepatitis High cholesterol Easy bruising Injury of head and neck Gait instability Dietary restriction Heartburn Non-smoker Shortness of breath on exertion Leg cramps History of pain when walking History of edema History of stress test Multiple polyps of sigmoid colon Screening for malignant neoplasm of intestine Hemorrhoids Acid reflux Coughing Arthritis Rash Diabetes Home Medications ?Medication ?Instructions ?Recorded ?Last Taken ?Type atorvastatin 80 mg tablet 80 mg PO QHS 04/09/20 Unknown History cholecalciferol (vitamin D3) 50 50 mcg PO DAILY 04/09/20 Unknown History mcg (2,000 unit) capsule glipizide 5 mg tablet 5 mg PO DAILY 04/09/20 Unknown History insulin detemir U-100 100 unit/mL 35 unit subcut QHS 04/09/20 Unknown History (3 mL) subcutaneous pen levothyroxine 25 mcg capsule 25 mcg PO DAILY 04/09/20 04/30/20 History metformin 1,000 mg tablet 1,000 mg PO BID 04/09/20 Unknown History psyllium husk 0.4 gram capsule 0.4 g PO BID 04/09/20 Unknown History (Fiber (psyllium husk)) alogliptin 25 mg tablet 25 mg PO DAILY 01/24/23 Unknown History tamsulosin 0.4 mg capsule (Flomax) 0.4 mg PO DAILY #30 caps 02/05/23 Unknown Rx Allergy/AdvReac Type Severity Reaction Status Date / Time aspirin Allergy Unknown Unknown Verified 11/21/24 13:50 Family History Mother Arthritis Heart disease Hypertension CVA (cerebral vascular accident) Thyroid disorder Seizures Asthma Father Diabetes Heart disease Hypertension CVA (cerebral vascular accident) High cholesterol Sister Diabetes Surgical History History of colonoscopy Hx of appendectomy Hx of cholecystectomy Hx of repair of left rotator cuff Hx of repair of right rotator cuff Hx of tonsillectomy Social History Smoking Status: Never smoker second hand exposure: No alcohol intake: never substance use type: does not use caffeine: Yes what type of physical activity do you participate in: none frequency: does not exercise seatbelt use: always ROS ROS ED Constitutional Constitutional ED: Denies chills or fever(s) Cardiovascular Cardiovascular: Denies chest pain Respiratory/Chest Respiratory/Chest: Denies dyspnea Gastrointestinal Gastrointestinal: Denies abdominal pain, diarrhea, melena, nausea or vomiting Genitourinary Genitourinary ED: Reports as per HPI and difficulty urinating; Denies dysuria or hematuria Musculoskeletal Musculoskeletal: Denies back pain or neck pain Integumentary Denies rash Neurologic Neurologic: Denies headache(s), paresthesias or weakness EXAM Physical Exam Const Vital Signs: 11/21/24 13:50 11/21/24 15:49 Temperature 97 F L Temperature Source Temporal Pulse Rate 94 76 Respiratory Rate 15 16 Blood Pressure 148/63 H 132/68 H Blood Pressure Mean 91 89 Pulse Ox 97 98 Oxygen Delivery Method Room Air Positive well nourished, well developed and obese General Appearance ED: well developed and NAD Nutritional Appearance: obese HEENT Reports moist mucous membranes normocephalic and atraumatic Eyes PERRL and EOMs intact bilaterally Neck supple Resp normal respiratory effort GI non-tender and non-distended GI Narrative: Several external hemorrhoids on rectal. Nothing that looks thrombosed. No abscess, no tenderness. No active bleeding or signs of recent bleeding. Auscultation: normoactive bowel sounds Palpation: soft Rectal Exam: Negative for tenderness Narrative: Uncircumcised penis, testicles normal nontender. Extremity normal to inspection Neuro oriented x3, CN's II-XII intact bilaterally, moves all extremities, no focal motor deficits and no sensory deficits noted Psych mental status grossly normal Skin Skin Narrative: No rash or lesions. MDM MDM MDM Narrative Medical decision making narrative: Dixon catheter was placed, patient had 300+ cc of nonbloody urine come out, he felt much better. Sent for urinalysis no sign of infection. Patient has urologist at NH he can follow-up with them, he is already on tamsulosin stable for follow-up as an outpatient, and he has topical hemorrhoid treatment that he can continue using. Lab Data Attestation: I reviewed the patient's lab results. Labs: Laboratory Results - last 24 hr 11/21/24 14:16 Urine Color Yellow Urine Clarity Clear Urine pH 6.0 Ur Specific [place] 1.015 Urine Protein 30 H Urine Glucose (UA) 1000 H Urine Ketones Negative Urine Occult Blood 50 H Urine Nitrite Negative Urine Bilirubin Negative Urine Urobilinogen Normal Ur Leukocyte Esterase Negative Discharge Plan Triage Chief Complaint: Complaint ED Provider: Roman Swift Dx/Rx/DC Orders Clinical Impression: Acute urinary retention, External hemorrhoids without complication, Prostatic hypertrophy Instructions: ED Dixon Catheter, Care, ED Hemorrhoids, ED Urinary Retention, Male Prescriptions: No Action atorvastatin 80 mg tablet 80 mg PO QHS Patient Comments: TAKE 1 TABLET BY MOUTH AT BEDTIME insulin detemir U-100 100 unit/mL (3 mL) insulin pen 35 unit SC QHS Patient Comments: INJECT 16 UNITS SUBCUTANEOUSLY AT BEDTIME glipizide 5 mg tablet 5 mg PO DAILY metformin 1,000 mg tablet 1,000 mg PO BID cholecalciferol (vitamin D3) 50 mcg (2,000 unit) capsule 50 mcg PO DAILY psyllium husk [Fiber (psyllium husk)] 0.4 gram capsule 0.4 g PO BID levothyroxine 25 mcg capsule 25 mcg PO DAILY tamsulosin [Flomax] 0.4 mg capsule 0.4 mg PO DAILY Qty: 30 1RF alogliptin 25 mg tablet 25 mg PO DAILY Primary Care Provider: [facility] Referrals: Your urologist [Other] - As soon as possible [facility] [Primary Care Provider] - Print Language: Armenian Disposition Disposition: Home, Self Care
[2024-11-21 14:32] LABS: Bacteria 0 SEEN /hpf (None Seen); Mucous, Urine 0 SEEN /hpf (<or=2+)
[2024-11-21 15:24] LABS: Color, Urine Yellow (Yellow); Glucose, Dipstick 1000 mg/dl (Normal); Ketone-Dipstick Negative (Negative); Leukocyte Esterase-Dipstick Negative /ul (Negative); Nitrite-Dipstick Negative (Negative); Occult Blood-Urine 50 /ul (Negative); Protein-Dipstick 30 mg/dl (Negative); Specific Gravity, Urine 1.015 (1.002-1.030); Urine Bilirubin Dipstick Negative (Negative); Urine Clarity Clear (Clear); Urine Urobilinogen Normal (Normal)
[2024-11-21 15:49] VITALS: BP 132/68; PULSE 76; RESP 16; O2SAT 98
[2024-11-21 16:33] LABS: Red Blood Cells-Urine 5-10 SEEN /hpf (0-5)
[2024-11-21 16:34] LABS: Squamous Epithelial Cells - UA 0-5 SEEN /hpf (0-5); White Blood Cells 0-5 SEEN /hpf (0-5)
[2024-11-21 16:35] LABS: Hyaline Cast 0-5 SEEN /lpf (0-5)
[2024-11-21 17:00] VITALS: BP 128/72; PULSE 71; RESP 18; O2SAT 99
[2024-11-21 17:17] VITALS: BP 128/72; PULSE 71; RESP 18; TEMP 36.7; O2SAT 99
== END 2024-11-21 17:18 | disposition home or self-care (01) ==
PROVIDERS: Emergency Provider Emergency Medicine; Visit Provider Emergency Medicine
DX: N40.1 Benign prostatic hyperplasia with lower urinary tract symptoms (principal); E11.9 Type 2 diabetes mellitus without complications; Z79.4 Long term (current) use of insulin; K64.4 Residual hemorrhoidal skin tags; E78.00 Pure hypercholesterolemia, unspecified; R33.8 Other retention of urine; Z79.899 Other long term (current) drug therapy; Z79.84 Long term (current) use of oral hypoglycemic drugs; Z90.49 Acquired absence of other specified parts of digestive tract
CPT/HCPCS: 51702; 81001; 99283

== ENCOUNTER 2024-11-25 12:18 | Emergency (ER) | payer OTHER, SELFPAY ==
[2024-11-25 12:21] VITALS: BP 131/54; PULSE 83; RESP 20; TEMP 36.7; O2SAT 96; BMI 30.2
[2024-11-25] MEDS: Lidocaine 1% (20 ml mdv) 20 ML Vial INFILT (14:17)
[2024-11-25 14:37] VITALS: BP 134/54; PULSE 79; RESP 16; O2SAT 94
--- NOTE | 2024-11-25 15:53 | EX.ED.DYSGE1 ---
HPI History of Present Illness Chief Complaint: Other, Pain/Inj Informant: patient Narrative Narrative: 79-year-old male has had worsening rectal pain, thinks it may be a hemorrhoid over the past 4 days. He was seen here and had him evaluated 4 days ago and feels like this has been gradually getting worse since maybe the day after he was seen here, which was for urinary retention. Denies any bleeding from any this area. This is very painful and now he can barely sit on it. Very painful to have a bowel movement. No systemic symptoms or fevers. [facility] Medical History Restless legs Chronic cough Tinnitus Wears glasses Thyroid disease Insulin dependent diabetes mellitus Arthritis Prostate disease Hepatitis High cholesterol Easy bruising Injury of head and neck Gait instability Dietary restriction Heartburn Non-smoker Shortness of breath on exertion Leg cramps History of pain when walking History of edema History of stress test Multiple polyps of sigmoid colon Screening for malignant neoplasm of intestine Hemorrhoids Acid reflux Coughing Arthritis Rash Diabetes Home Medications ?Medication ?Instructions ?Recorded ?Last Taken ?Type atorvastatin 80 mg tablet 80 mg PO QHS 04/09/20 Unknown History cholecalciferol (vitamin D3) 50 50 mcg PO DAILY 04/09/20 Unknown History mcg (2,000 unit) capsule glipizide 5 mg tablet 5 mg PO DAILY 04/09/20 Unknown History insulin detemir U-100 100 unit/mL 35 unit subcut QHS 04/09/20 Unknown History (3 mL) subcutaneous pen levothyroxine 25 mcg capsule 25 mcg PO DAILY 04/09/20 04/30/20 History metformin 1,000 mg tablet 1,000 mg PO BID 04/09/20 Unknown History psyllium husk 0.4 gram capsule 0.4 g PO BID 04/09/20 Unknown History (Fiber (psyllium husk)) alogliptin 25 mg tablet 25 mg PO DAILY 01/24/23 Unknown History tamsulosin 0.4 mg capsule (Flomax) 0.4 mg PO DAILY #30 caps 02/05/23 Unknown Rx amoxicillin 875 mg-potassium 875 mg PO Q12H #20 TABLETS 11/25/24 Unknown Rx clavulanate 125 mg tablet Allergy/AdvReac Type Severity Reaction Status Date / Time aspirin Allergy Unknown Unknown Verified 11/25/24 12:22 Family History Mother Arthritis Heart disease Hypertension CVA (cerebral vascular accident) Thyroid disorder Seizures Asthma Father Diabetes Heart disease Hypertension CVA (cerebral vascular accident) High cholesterol Sister Diabetes Surgical History History of colonoscopy Hx of appendectomy Hx of cholecystectomy Hx of repair of left rotator cuff Hx of repair of right rotator cuff Hx of tonsillectomy Social History Smoking Status: Never smoker second hand exposure: No alcohol intake: never substance use type: does not use caffeine: Yes what type of physical activity do you participate in: none frequency: does not exercise seatbelt use: always ROS ROS ED Constitutional Constitutional ED: Denies chills or fever(s) Eyes Eyes: Denies change in vision or diplopia ENT ENT ED: Denies rhinorrhea or sore throat Cardiovascular Cardiovascular: Denies chest pain or palpitations Respiratory/Chest Respiratory/Chest: Denies cough or dyspnea Gastrointestinal Gastrointestinal: Reports other Details: Rectal pain see HPI ; Denies abdominal pain, diarrhea, hematochezia, nausea or vomiting Genitourinary Genitourinary ED: Reports other Details: Good flow through Dixon catheter ; Denies hematuria Musculoskeletal Musculoskeletal: Denies back pain or neck pain Integumentary Denies abscess or rash Neurologic Neurologic: Denies headache(s), paresthesias or weakness Psychiatric Psychiatric: Denies anxiety or suicidal thoughts EXAM Physical Exam Const Vital Signs: 11/25/24 12:21 11/25/24 14:33 11/25/24 14:37 Temperature 98.1 F Temperature Source Oral Pulse Rate 83 79 Respiratory Rate 20 H 16 Respiratory Effort Non-Labored Respiratory Pattern Normal Blood Pressure 131/54 H 134/54 H Blood Pressure Mean 79 80 Pulse Ox 96 94 Oxygen Delivery Method Room Air Room Air Positive well nourished and well developed General Appearance ED: well developed and NAD HEENT Reports moist mucous membranes normocephalic and atraumatic Eyes PERRL and EOMs intact bilaterally Neck full ROM and supple Resp normal respiratory effort and clear to auscultation bilaterally Cardio regular rate, regular rhythm and no murmurs GI non-tender and non-distended GI Narrative: On perianal exam, he has a couple of small external hemorrhoids without signs of bleeding or discharge, however there is a very painful tender erythematous indurated area at about the 6:00 area perianal with fullness suspicious for an abscess. Auscultation: normoactive bowel sounds Palpation: soft Narrative: Dixon catheter in place, transparent yellow urine without hematuria Back/Spine no CVA tenderness General Back: other FROM Extremity normal to inspection General Extremety ED: Negative for edema, pulses abnormal or tenderness General Extremity: Negative for edema or pulses abnormal Neuro oriented x3, CN's II-XII intact bilaterally and no sensory deficits noted Sensorium / Orientation: awake and alert Motor Exam: strength 5/5 throughout Skin no rashes or lesions noted and no wounds MDM MDM MDM Narrative Medical decision making narrative: My concern is that this is a perianal abscess. Patient agrees that it feels like something different than a hemorrhoid. This is not a thrombosed hemorrhoid. I advised incision and drainage, with local lidocaine he was amenable to that consented. Obtain some labs as well, showing a mild leukocytosis and shift toward the left without bands. See the procedure note, large amount of pus was expressed from the area which felt better afterwards. I sent a specimen for culture. I discussed with Dr. Somers surgery for follow-up, she is agreeable and agrees with Augmentin. Lab Data Attestation: I reviewed the patient's lab results. Labs: Laboratory Results - last 24 hr 11/25/24 16:07 WBC 13.9 H RBC 4.22 L Hgb 12.7 L Hct 37.1 L MCV 87.9 MCH 30.1 MCHC 34.2 RDW Std Deviation 38.3 RDW Coeff of Girma 11.9 Plt Count 436 MPV 9.1 Immature Gran % (Auto) 0.700 Neut % (Auto) 83.3 H Lymph % (Auto) 6.6 L [place] % (Auto) 9.0 Eos % (Auto) 0.1 Baso % (Auto) 0.3 Absolute Neuts (auto) 11.6 H Absolute Lymphs (auto) 0.92 Nucleated RBC % 0 Sodium 135 Potassium 4.6 Chloride 94 L Carbon Dioxide 29.9 Anion Gap 11 BUN 19 Creatinine 1.10 Estim Creat Clear Calc 62.27 Est GFR (MDRD) Non-Af 69 BUN/Creatinine Ratio 17.1 Glucose 161 H Calcium 9.3 Management Discussion w/another healthcare provider: Yarding Supervisor (Surgery Dr. Somers) Procedures Other Procedures Procedure(s): Complex incision and drainage perianal abscess: After informed consent from the patient, the area was prepped with chlorhexidine, locally anesthetized with 2 cc of plain 1% lidocaine, and incised with a #10 blade. This was done just outside of the anal verge, where the abscess was pointing and there appeared to be a pustule. The extent incision was extended away from the anus slightly about 2 cm total. Extremely large amount of pus was expressed. I deloculated with hemostats, no stool content obtained. I irrigated gently with 50 cc of sterile saline. I then packed the cavity with half-inch sterile gauze, and placed a dressing which he tolerated well no complications. There was no bleeding or purulent discharge from the anus proper during this or after the procedure. Discharge Plan Triage Chief Complaint: Other, Pain/Inj ED Provider: Roman Swift Dx/Rx/DC Orders Clinical Impression: Abscess, perianal Instructions: ED ABSCESS [place] Prescriptions: New amoxicillin-pot clavulanate 875-125 mg tablet 875 mg PO Q12H Qty: 20 0RF No Action atorvastatin 80 mg tablet 80 mg PO QHS Patient Comments: TAKE 1 TABLET BY MOUTH AT BEDTIME insulin detemir U-100 100 unit/mL (3 mL) insulin pen 35 unit SC QHS Patient Comments: INJECT 16 UNITS SUBCUTANEOUSLY AT BEDTIME glipizide 5 mg tablet 5 mg PO DAILY metformin 1,000 mg tablet 1,000 mg PO BID cholecalciferol (vitamin D3) 50 mcg (2,000 unit) capsule 50 mcg PO DAILY psyllium husk [Fiber (psyllium husk)] 0.4 gram capsule 0.4 g PO BID levothyroxine 25 mcg capsule 25 mcg PO DAILY tamsulosin [Flomax] 0.4 mg capsule 0.4 mg PO DAILY Qty: 30 1RF alogliptin 25 mg tablet 25 mg PO DAILY Primary Care Provider: [facility] Referrals: Ivory Somers MD [Med Staff - Active Staff] - 11/26/24 (call for appt time) Activity Restrictions/Additional Instructions: For now, change dressing 3 times daily or more often if soaked, and follow-up with surgery for reevaluation tomorrow. Print Language: Danish Disposition Disposition: Home, Self Care
[2024-11-25 16:17] LABS: Absolute Lymphocyte Count 0.92 X10^3/uL (0.83-4.51); Absolute Neutrophil Count 11.6 X10^3/uL (2.0-7.7); Basophil# 0.04 X10^3/uL; Basophil% 0.3 % (0-1); Eosinophil# 0.01 X10^3/uL; Eosinophils% 0.1 % (0-5); Hematocrit 37.1 % (40-54); Hemoglobin 12.7 g/dL (13.0-16.5); Lymphocyte # 0.92 X10^3/ul (0.83-4.51); Lymphocyte % 6.6 % (19-41); Mean Corp Hgb Conc 34.2 g/dL (32-36); Mean Corpuscular Hgb 30.1 pg (27.0-32.0); Mean Corpuscular Volume 87.9 fL (80-94); Mean Platelet Vol. 9.1 fl (6.2-12.0); Monocyte# 1.26 X10^3/uL; NRBC Flagged by Analyzer 0 % (0-5); Neutrophil % 83.3 % (47-70); Platelet Count 436 K/mm3 (150-450); RBC Distribution Width CV 11.9 % (11.6-14.6); RBC Distribution Width SD 38.3 fl (35.1-43.9); Red Blood Count 4.22 M/mm3 (4.6-6.2); White Blood Count 13.9 K/mm3 (4.4-11.0)
[2024-11-25 16:43] LABS: Anion Gap 11 (5-15); BUN 19 mg/dL (4-19); BUN/Creat Ratio 17.1 RATIO (10-20); Calcium,Total 9.3 mg/dL (7.6-11.0); Carbon Dioxide 29.9 mmol/L (21.0-32.0); Chloride 94 mmol/L (98-108); EST Glomerular Filtration Rate 69 (>60); Estimated Creatinine Clearance 62.27 ml/min (50-250); Glucose 161 mg/dL (70-99); Potassium 4.6 mmol/L (3.3-5.1); Sodium Level 135 mmol/L (133-145)
[2024-11-25] MEDS: Amox/Clavulanate 875 MG Tablet PO (17:14)
[2024-11-25 17:24] VITALS: BP 130/56; PULSE 79; RESP 16; TEMP 36.3; O2SAT 97
== END 2024-11-25 17:36 | disposition home or self-care (01) ==
PROVIDERS: Emergency Provider Emergency Medicine; Visit Provider Emergency Medicine
DX: K61.0 Anal abscess (principal); Z79.4 Long term (current) use of insulin; E11.9 Type 2 diabetes mellitus without complications; E78.00 Pure hypercholesterolemia, unspecified; Z79.899 Other long term (current) drug therapy; Z79.84 Long term (current) use of oral hypoglycemic drugs; Z90.49 Acquired absence of other specified parts of digestive tract
CPT/HCPCS: 46050; 80048; 85025; 87070; 87077; 87186; 87205; 99283; A4216

== ENCOUNTER 2024-11-27 13:48 | Emergency (ER) | payer OTHER, SELFPAY ==
[2024-11-27 13:49] VITALS: BP 135/66; PULSE 115; RESP 17; TEMP 36.6; O2SAT 95; BMI 30.3
[2024-11-27 13:52] VITALS: BP 135/66; PULSE 115; RESP 17; TEMP 36.6; O2SAT 95
--- NOTE | 2024-11-27 14:21 | EX.ED.DYSGE1 ---
HPI History of Present Illness Chief Complaint: Complaint Narrative Narrative: Patient is a 71-year-old male past medical history hypercholesterolemia, GERD, BPH, hemorrhoids, diabetes who presents to the emergency department with chief complaint of concern that his Dixon catheter is not working. He states that he was here on Sunday after he could not pee they placed a Dixon catheter and he states that had been working without any difficulty. He states that recently he noted that his urine had been leaking around the Dixon catheter and he has been having bad spasms. He states that he is a and called to [facility] and got a hold of the urology team and they state that they were concerned that something is blocked therefore they sent him here to be evaluated. Patient otherwise has no other complaints. [facility] Medical History Restless legs Chronic cough Tinnitus Wears glasses Thyroid disease Insulin dependent diabetes mellitus Arthritis Prostate disease Hepatitis High cholesterol Easy bruising Injury of head and neck Gait instability Dietary restriction Heartburn Non-smoker Shortness of breath on exertion Leg cramps History of pain when walking History of edema History of stress test Multiple polyps of sigmoid colon Screening for malignant neoplasm of intestine Hemorrhoids Acid reflux Coughing Arthritis Rash Diabetes Home Medications ?Medication ?Instructions ?Recorded ?Last Taken ?Type atorvastatin 80 mg tablet 80 mg PO QHS 04/09/20 Unknown History cholecalciferol (vitamin D3) 50 50 mcg PO DAILY 04/09/20 Unknown History mcg (2,000 unit) capsule glipizide 5 mg tablet 5 mg PO DAILY 04/09/20 Unknown History insulin detemir U-100 100 unit/mL 35 unit subcut QHS 04/09/20 Unknown History (3 mL) subcutaneous pen levothyroxine 25 mcg capsule 25 mcg PO DAILY 04/09/20 04/30/20 History metformin 1,000 mg tablet 1,000 mg PO BID 04/09/20 Unknown History psyllium husk 0.4 gram capsule 0.4 g PO BID 04/09/20 Unknown History (Fiber (psyllium husk)) alogliptin 25 mg tablet 25 mg PO DAILY 01/24/23 Unknown History tamsulosin 0.4 mg capsule (Flomax) 0.4 mg PO DAILY #30 caps 02/05/23 Unknown Rx amoxicillin 875 mg-potassium 875 mg PO Q12H #20 TABLETS 11/25/24 Unknown Rx clavulanate 125 mg tablet Allergy/AdvReac Type Severity Reaction Status Date / Time aspirin Allergy Unknown Unknown Verified 11/27/24 13:53 Family History Mother Arthritis Heart disease Hypertension CVA (cerebral vascular accident) Thyroid disorder Seizures Asthma Father Diabetes Heart disease Hypertension CVA (cerebral vascular accident) High cholesterol Sister Diabetes Surgical History History of colonoscopy Hx of repair of right rotator cuff Hx of repair of left rotator cuff Hx of cholecystectomy Hx of appendectomy Hx of tonsillectomy Social History Smoking Status: Never smoker second hand exposure: No alcohol intake: never substance use type: does not use caffeine: Yes what type of physical activity do you participate in: none frequency: does not exercise seatbelt use: always ROS ROS ED ROS Narrative Constitutional: Denies fevers, chills, headaches Abdomen: Complains of lower abdominal spasms denies nausea vomit diarrhea : Complains of Dixon catheter not draining appropriately as noted above Neurological: Denies numbness, weakness, tingling Musculoskeletal: Denies back pain Skin: Denies rashes or lesions EXAM Physical Exam Narrative Exam Narrative: General: Patient was lying in bed rest comfortably did not appear to be in acute distress Head: Atraumatic, normocephalic Eyes: PERRL bilaterally, EOMI bilateral, no conjunctival injection noted Neck: Soft, supple, trachea midline Cardiovascular: Patient tachycardic with a regular rhythm Respiratory: Clear to auscultation bilaterally Abdomen: Soft, nondistended, mild suprapubic tenderness on exam no rebound or guarding noted Extremities: +5/5 strength noted in the bilateral upper and lower extremities Neurological: Patient follow commands knew that he was at [facility] the year is 2024 Skin: Warm, dry contact no rashes or lesions noted Const Vital Signs: 11/27/24 13:49 11/27/24 13:52 11/27/24 15:19 Temperature 97.9 F 97.9 F Temperature Source Oral Temporal Pulse Rate 115 H 115 H Respiratory Rate 17 17 Blood Pressure 135/66 H 135/66 H Blood Pressure Mean 89 89 Pulse Ox 95 95 96 Oxygen Delivery Method Room Air Room Air 11/27/24 15:30 Temperature Temperature Source Pulse Rate 101 H Respiratory Rate 12 Blood Pressure 131/64 H Blood Pressure Mean 86 Pulse Ox 94 Oxygen Delivery Method MDM MDM MDM Narrative Medical decision making narrative: Patient is a 79-year-old male who presents to the emergency department with concern for Dixon catheter not draining. On the differential diagnosis includes but not limited to clogged Dixon catheter, dislodged Dixon catheter. Nurse staff attempted to BladderScan the patient was having difficulty therefore did a bedside ultrasound which showed the bladder decompressed with Dixon catheter in the bladder this will be attempted to be irrigated. Urinalysis and urine culture will be obtained. Patient's Dixon catheter was irrigated clot was dislodged and after this the Dixon catheter had been draining appropriately here in the emergency department Patient's BMP reviewed showed sodium is normal 135, potassium normal 4.1, creatinine is 1.53, anion gap of 18, glucose of 217. Patient states that he only took his morning diabetic medication he states that he normally takes the other portion of his diabetic medication at dinnertime and then he takes his insulin at night. Patient urinalysis reviewed and showed 100 leukocyte esterase negative nitrites 0-5 white cells with 1+ bacteria we will hold off on antibiotics for now and send this for culture. On reevaluation patient he is feeling better he would like to go home at this point in time. He was advised that he needs to take his diabetic medications that he is prescribed already. He is agreeable this plan he is advised to follow-up with urology at the [facility]. All question concerns answered discharged home in stable condition. Lab Data Labs: Laboratory Results - last 24 hr 11/27/24 11/27/24 14:30 15:26 Sodium 135 Potassium 4.1 Chloride 94 L Carbon Dioxide 23.4 Anion Gap 18 H BUN 35 H Creatinine 1.53 H Estim Creat Clear Calc 44.85 L Est GFR (MDRD) Non-Af 46 L BUN/Creatinine Ratio 22.8 H Glucose 217 H Calcium 9.2 Urine Color Yellow Urine Clarity Clear Urine pH 5.0 Ur Specific [place] 1.025 Urine Protein 100 H Urine Glucose (UA) Normal Urine Ketones Negative Urine Occult Blood 250 H Urine Nitrite Negative Urine Bilirubin Negative Urine Urobilinogen 1 H Ur Leukocyte Esterase 100 H Urine RBC 10-25 SEEN Urine WBC 0-5 SEEN Ur Squamous Epith Cells 0-5 SEEN Amorphous Sediment 2+ Urine Bacteria 1+ Urine Mucus 0 SEEN Discharge Plan Triage Chief Complaint: Complaint ED Provider: Kwabena Hernandez Dx/Rx/DC Orders Clinical Impression: Dixon catheter problem, Diabetes Prescriptions: No Action atorvastatin 80 mg tablet 80 mg PO QHS Patient Comments: TAKE 1 TABLET BY MOUTH AT BEDTIME insulin detemir U-100 100 unit/mL (3 mL) insulin pen 35 unit SC QHS Patient Comments: INJECT 16 UNITS SUBCUTANEOUSLY AT BEDTIME glipizide 5 mg tablet 5 mg PO DAILY metformin 1,000 mg tablet 1,000 mg PO BID cholecalciferol (vitamin D3) 50 mcg (2,000 unit) capsule 50 mcg PO DAILY psyllium husk [Fiber (psyllium husk)] 0.4 gram capsule 0.4 g PO BID levothyroxine 25 mcg capsule 25 mcg PO DAILY tamsulosin [Flomax] 0.4 mg capsule 0.4 mg PO DAILY Qty: 30 1RF alogliptin 25 mg tablet 25 mg PO DAILY amoxicillin-pot clavulanate 875-125 mg tablet 875 mg PO Q12H Qty: 20 0RF Primary Care Provider: [facility] [Primary Care Provider] - Activity Restrictions/Additional Instructions: Follow-up with your physicians in outpatient setting included the urology team at the [facility]. Return with worsening symptoms or any other concerns. Follow-up on urine culture with your doctor as well. Ensure you are taking your prescribed medications. Print Language: [place] Citizen Disposition Disposition: Home, Self Care
[2024-11-27 15:19] VITALS: O2SAT 96
[2024-11-27 15:23] LABS: Anion Gap 18 (5-15); BUN 35 mg/dL (4-19); BUN/Creat Ratio 22.8 RATIO (10-20); Calcium,Total 9.2 mg/dL (7.6-11.0); Carbon Dioxide 23.4 mmol/L (21.0-32.0); Chloride 94 mmol/L (98-108); Creatinine, Serum 1.53 mg/dL (0.70-1.20); EST Glomerular Filtration Rate 46 (>60); Estimated Creatinine Clearance 44.85 ml/min (50-250); Glucose 217 mg/dL (70-99); Potassium 4.1 mmol/L (3.3-5.1); Sodium Level 135 mmol/L (133-145)
[2024-11-27 15:30] VITALS: BP 131/64; PULSE 101; RESP 12; O2SAT 94
[2024-11-27 15:33] LABS: Mucous, Urine 0 SEEN /hpf (<or=2+)
[2024-11-27] MEDS: 0.9% Normal Saline (1000mL) 1,000 ML 999 ML IV (15:41)
[2024-11-27 15:57] LABS: Color, Urine Yellow (Yellow); Glucose, Dipstick Normal (Normal); Ketone-Dipstick Negative (Negative); Leukocyte Esterase-Dipstick 100 /ul (Negative); Nitrite-Dipstick Negative (Negative); Occult Blood-Urine 250 /ul (Negative); Protein-Dipstick 100 mg/dl (Negative); Specific Gravity, Urine 1.025 (1.002-1.030); Urine Bilirubin Dipstick Negative (Negative); Urine Clarity Clear (Clear); Urine Urobilinogen 1 mg/dl (Normal)
[2024-11-27 16:04] LABS: Amorphous Sediment 2+; Bacteria 1+ /hpf (None Seen); Red Blood Cells-Urine 10-25 SEEN /hpf (0-5); Squamous Epithelial Cells - UA 0-5 SEEN /hpf (0-5); White Blood Cells 0-5 SEEN /hpf (0-5)
[2024-11-27 16:52] VITALS: BP 142/80; PULSE 78; RESP 12; TEMP 36.9; O2SAT 100
== END 2024-11-27 17:02 | disposition home or self-care (01) ==
PROVIDERS: Emergency Provider Emergency Medicine; Visit Provider Emergency Medicine
DX: T83.091A Other mechanical complication of indwelling urethral catheter, initial encounter (principal); E11.9 Type 2 diabetes mellitus without complications; Z79.4 Long term (current) use of insulin; E78.00 Pure hypercholesterolemia, unspecified; Z83.3 Family history of diabetes mellitus; Z90.49 Acquired absence of other specified parts of digestive tract; K21.9 Gastro-esophageal reflux disease without esophagitis; N40.0 Benign prostatic hyperplasia without lower urinary tract symptoms
CPT/HCPCS: 80048; 81001; 87086; 96360; 99283; A4216